=== PATIENT | male | born 1980 | race Caucasian/White ===

== ENCOUNTER 2016-11-16 23:58 | Emergency (ER) ==
[2016-11-17 00:08] VITALS: BP 133/71
[2016-11-17] MEDS ORDERED: TORADOL IM ONE (00:29)
--- NOTE | 2016-11-17 01:03 | PROVIDER DOCUMENTATION ---
HPI-Musculoskeletal Pain/Inj - GENERAL Chief Complaint: Back Pain Stated Complaint: KNOT ON RT SHOULDER Time Seen by Provider: 11/17/16 00:18 Source: patient - HX OF PRESENT ILLNESS-MUSKULOSKELTAL Nature of Presenting Problem: 36 year old WM presents with c/o right shoulder, low back pain, onset yesterday while spending the day moving and lifting heavy furniture and boxes. denies sensation of popping, clicking, falling. Quality of Pain: reports: aching, dull Severity in ED: mild Onset/Duration: 24 hours ago Timing: still present, constant, getting worse Modifying Factors: improves with: nothing (denies takeing any OTC meds for this issue) Any recent injury?: Yes Locality of Occurance: Home Similar Symptoms Previously?: No Recently seen or treated by another doctor?: No Review of Systems - Adult - REVIEW OF SYSTEMS - ADULT Constitutional: reports: no symptoms reported. denies: chills, fever, fatique Eyes: reports: no symptoms reported. denies: discharge, blurred vision, double vision Ears, Nose, Mouth & Throat: reports: no symptoms reported. denies: ear discharge, ear pain, nose pain, loose teeth, throat pain, throat swelling Cardiovascular: reports: no symptoms reported. denies: chest pain, palpitations , syncope Respiratory: reports: no symptoms reported. denies: chronic cough, cough, shortness of breath, wheezing Gastrointestinal: reports: no symptoms reported. denies: abdominal pain, diarrhea, nausea, poor appetite, vomiting Genitourinary: reports: no symptoms reported. denies: dysuria, hematuria, urgency Musculoskeletal: reports: see HPI, bone pain, back pain (lumbar back tenderness) , joint pain (right shoulder). denies: frequent leg cramps, joint swelling, muscle aches, muscle weakness, neck pain Integumentary: reports: no symptoms reported. denies: hives, itching, rash, skin sores/ulcer Neurological: reports: no symptoms reported. denies: ataxia, dizziness/vertigo , numbness, paresthesia Psychiatric: reports: no symptoms reported Endocrine: reports: no symptoms reported Hematologic/Lymphatic: reports: no symptoms reported Allergic/Immunologic: reports: no symptoms reported All Other Systems: Reviewed and Negative Past History - Adult - PAST MEDICAL HISTORY-ADULT Review of Records: reports: Old Records Reviewed, Nursing Assessment Review, Medications Reviewed, Social history reviewed & non-contributory. Major Childhood Illnesses: reports: denies history Cardiovascular: reports: denies history Respiratory: reports: denies history Gastrointestinal: reports: denies history Obstetrical/Gynecological: reports: denies history Genitourinary: reports: denies history Musculoskeletal: reports: denies history Neurological: reports: denies history Endocrine/Immune: reports: denies history Other Conditions: reports: denies history - PRIOR SURGERIES/PROCEDURES Surgical/Procedure History: reports: none - IMMUNIZATION STATUS Childhood Immunizations: See Nurse Assessment Flu Vaccine: See Nurse Assessment - FAMILY HISTORY Family History: reviewed, not pertinent - SOCIAL HISTORY Smoking: cigarettes Provider spent 3-5 mins advising pt. on dangers of tobacco.: Discussed manners to quit use, and f/u contacts for add'l counseling. Substance Use: none/never Alcohol Use Frequency: never Physical Exam-Injury Related - Physical Exam-Injury Related Initial Vital Signs Reviewed: Yes General Appearance: appears well, alert, no apparent distress Eyes: pink conjunctivae. negative: conjuctival exudate Head, Ears, Nose, Mouth & Throat: normocephalic/atraumatic, moist mucous membranes, normal ENT inspection Neck: non-tender, full range of motion, supple, normal inspection Respiratory: chest non-tender, lungs clear, normal breath sounds, no pleuratic chest pain, no respiratory distress, no accessory muscle use Cardiovascular: normal peripheral pulses, regular rate, rhythm Chest/Breast: no tenderness Peripheral Pulses: radial (R): 3+, radial (L): 3+, dorsalis-pedis (R): 3+, dorsalis-pedis (L): 3+ Abdominal Exam: normal bowel sounds, non tender, soft Male Genitalia: deferred Rectal Exam: deferred Lymphatic: no adenopathy, axilla node tender, cervical node tenderness Back Exam: normal inspection, no CVA tenderness, no vertebral tenderness. negative: CVA tenderness, decreased range of motion, swelling, vertebral tenderness Extremity: normal range of motion, normal gait, normal inspection, no pedal edema, no calf tenderness, normal capillary refill, pelvis stable, tenderness ( anterior shoulder tenderness at the AC joint, without swelling, deformity. full ROM to RUE, circlation, sensation intact.). negative: abnormal NV exam, calf tenderness, deformity, erythema, inflammation, joint effusion, pulse deficit, pedal edema, slow capillary refill, swelling Integumentary: normal color, warm/dry Neurologic: grossly normal, no motor/sensory deficits. negative: motor weakness Psych/Mental Status: normal mood/affect, normal thought content, normal thought process - Glascow Coma Score Best Eye Response ([place]): (4) open spontaneously Best Verbal Response ([place]): (5) oriented Best Motor Response ([place]): (6) obeys commands [place] Total: 15 Progress - PLAN OF CARE/RESULTS Progress/Plan/Lab Results: Orders Category Date Time Status SHOULDER-RIGHT [RAD] Stat Exams 11/17/16 00:28 Completed Ketorolac [Toradol] Med 11/17/16 00:29 Discontinued 60 mg IM NOW ONE Reviewed radiology with Dr. Loyola, agrees with plan of care and treatment. - XRAY 1 XRAY: Right XRAY Study: Shoulder Impression: Normal Departure - Departure Time of Disposition Order: 01:01 DIAGNOSIS: Right shoulder strain Qualifiers: Encounter type: initial encounter Qualified Code(s): S46.911A - Strain of unspecified muscle, fascia and tendon at shoulder and upper arm level, right arm , initial encounter Disposition: HOME 01 Certified Medical Emergency: Emergent Condition: Stable Additional Instructions: ED Follow Up Instructions: You have been treated by a care provider in the Emergency Department. These instructions are being provided to you so you can have an understanding of how to care for yourself upon discharge. Upon discharge from the Emergency Department, you are responsible for making arrangements for follow-up care by a physician of your choice. Take all prescribed medications as directed. Return to the Emergency Department immediately for any new or worsening symptoms. You may call the Physician Referral phone number at [phone] to obtain a list of Physicians who are taking new patients. Prescriptions: Cyclobenzaprine [Flexeril] 5 mg PO TID #10 tablet Hydrocodone/APAP 5 mg/325 mg [Oneida-5] 1 each PO Q6H PRN PRN #5 tablet PRN Reason: shoulder pain Referrals: None,PCP [Primary Care Provider] - Forms: Return to School/Parent Work Instructions: Muscle Strain Attestation - Physician/ MARGARITA Attestation Patient care was provided by Advanced Practice Provider:: Yes Advanced Practice Provider:: Carroll Hough Advanced Practice Provider documentation review:: The Mid-level provider documentation, treatment plan and medical decision making was reviewed by the physician who agrees with all treatment and medical decision making by the MLP.
--- NOTE | 2016-11-17 07:44 | Diag Imaging Result Document ---
PROCEDURE NAME: SHOULDER-RIGHT - 11/17/2016 RIGHT SHOULDER THREE VIEWS INCLUDING AN AXILLARY Y-VIEW: FINDINGS: No separation at the acromioclavicular joint. No fracture. No dislocation. IMPRESSION: No acute bony injury.
== END 2016-11-17 01:15 | disposition home or self-care (01) ==
LOC: ED 23:58
DX: S46.911A Strain of unspecified muscle, fascia and tendon at shoulder and upper arm level, right arm, initial encounter (principal); R22.31 Localized swelling, mass and lump, right upper limb; M54.9 Dorsalgia, unspecified
CPT/HCPCS: 96372; J1885